=== PATIENT | female | born 1975 | race African-American/Black ===

== ENCOUNTER 2016-06-10 18:35 | Emergency (ER) | payer BC ==
--- NOTE | 2016-06-10 19:00 | EKG REPORT ---
SEVERITY:- OTHERWISE NORMAL ECG - SINUS TACHYCARDIA : Confirmed by: Mike Pinedo 10-Jun-2016 18:59:36
--- NOTE | 2016-06-10 19:30 | ER Document Report ---
ED Medical Screen (RME) - General Chief Complaint: Pelvic Pain Stated Complaint: ABDOMINAL PAIN,NAUSEA,PALPITATIONS Time seen by provider: 19:26 Mode of Arrival: Ambulatory Information source: Patient Notes: 40-year-old female presents to ED for pelvic pain and chest pain since this morning. She is about 19 weeks 6 days . She's had heart palpitations before. States she can feel her heartbeat in her right ear. States she was last checked by her [employer] SOLUTION ARCHITECT 2 weeks ago. 3 para 2 I have greeted and performed a rapid initial assessment of this patient. A comprehensive ED assessment and evaluation of the patient, analysis of test results and completion of medical decision making process will be conducted by an additional ED providers. TRAVEL OUTSIDE OF THE [place] IN LAST 30 DAYS: No - Related Data Allergies/Adverse Reactions: No Known Allergies Allergy (Verified 11/24/13 18:20) Past Medical History Musculoskeltal Medical History: Reports Hx Muscle Spasm Past Surgical History: Reports: Hx Cholecystectomy - Immunizations Hx Diphtheria, Pertussis, Tetanus Vaccination: Yes
[2016-06-10 21:29] LABS: ABSOLUTE EOSINOPHILS # (AUTO) 0.1 10^3/uL (0.0-0.6); ABSOLUTE LYMPHOCYTES (AUTO) 1.8 10^3/uL (0.5-4.7); ABSOLUTE MONOCYTES (AUTO) 0.6 10^3/uL (0.1-1.4); ABSOLUTE NEUT (AUTO) 8.1 10^3/uL (1.7-8.2); BASOPHILS % (AUTO) 0.1 % (0-2); EOSINOPHILS % (AUTO) 0.9 % (0-6); HEMATOCRIT 34.1 % (36.0-47.0); HEMOGLOBIN 11.3 g/dL (12.0-15.5); HGB HCT DIFFERENCE -0.2; LYMPHOCYTES % (AUTO) 16.9 % (13-45); MEAN CORPUSCULAR HEMOGLOBIN 29.5 pg (27.0-33.4); MEAN CORPUSCULAR HGB CONC 33.2 g/dL (32.0-36.0); MEAN CORPUSCULAR VOLUME 89 fl (80-97); MONOCYTES % (AUTO) 5.3 % (3-13); RED BLOOD COUNT 3.84 10^6/uL (3.72-5.28); RED CELL DISTRIBUTION WIDTH 13.1 % (11.5-14.0); SEGMENTED NEUTROPHILS % (AUTO) 76.8 % (42-78); WHITE BLOOD COUNT 10.5 10^3/uL (4.0-10.5)
[2016-06-10 21:43] LABS: APPEARANCE,URINE CLEAR; BILIRUBIN,URINE NEGATIVE (NEGATIVE); GLUCOSE, URINE NEGATIVE (NEGATIVE); KETONES,URINE TRACE mg/dL (NEGATIVE); LEUKOCYTE ESTERASE,URINE NEGATIVE (NEGATIVE); NITRITE,URINE NEGATIVE (NEGATIVE); PROTEIN,URINE NEGATIVE (NEGATIVE); URINE SPECIFIC GRAVITY 1.013; UROBILINOGEN,URINE NEGATIVE mg/dL (<2.0)
[2016-06-10 21:53] LABS: ALANINE AMINOTRANSFERASE 58 U/L (9-52); ALBUMIN 3.8 g/dL (3.5-5.0); ALKALINE PHOSPHATASE 107 U/L (38-126); ANION GAP 8 (5-19); ASPARTATE AMINO TRANSFERASE 35 U/L (14-36); BILIRUBIN,TOTAL 0.4 mg/dL (0.2-1.3); BLOOD UREA NITROGEN 6 mg/dL (7-20); CALCIUM 9.6 mg/dL (8.4-10.2); CARBON DIOXIDE 25 mmol/L (22-30); CHLORIDE 104 mmol/L (98-107); CREATINE KINASE 100 U/L (30-135); CREATININE RESULT 0.62 mg/dL (0.52-1.25); GLUCOSE 84 mg/dL (75-110); POTASSIUM 4.1 mmol/L (3.6-5.0); SODIUM 137.3 mmol/L (137-145); TOTAL PROTEIN 6.7 g/dL (6.3-8.2)
--- NOTE | 2016-06-11 02:18 | ER Document Report ---
ED General - General Chief Complaint: Pelvic Pain Stated Complaint: ABDOMINAL PAIN,NAUSEA,PALPITATIONS Mode of Arrival: Ambulatory Notes: Patient is a 40-year-old female presents with complaint of some lower pelvic cramping. She's also had some palpitations. She says she's tissues could be from stress to symptoms she does become anxious and feels her heart racing. She symptoms will for her heartbeat in her ear. She says she hears her heartbeat in her ear mainly when she lays flat. She has had some nasal congestion and cough recently. No fevers. Some nausea. No diarrhea. She is currently 19 weeks . This is her fourth . She's had 2 live children. One elective . TRAVEL OUTSIDE OF THE [place] IN LAST 30 DAYS: No - Related Data Allergies/Adverse Reactions: No Known Allergies Allergy (Verified 11/24/13 18:20) Past Medical History - General Information source: Patient - Social History Smoking Status: Former Smoker Frequency of alcohol use: None Drug Abuse: None Family History: Reviewed & Not Pertinent Patient has suicidal ideation: No Patient has homicidal ideation: No Renal/ Medical History: Denies: Hx Peritoneal Dialysis Musculoskeltal Medical History: Reports Hx Muscle Spasm Past Surgical History: Reports: Hx Cholecystectomy - Immunizations Hx Diphtheria, Pertussis, Tetanus Vaccination: Yes Review of Systems - Review of Systems Notes: My Normal Review Basic REVIEW OF SYSTEMS: CONSTITUTIONAL : Denies fever, chills, or sweats. Denies recent illness. EENT: Denies eye, ear, throat, or mouth pain or symptoms. Denies nasal or sinus congestion. CARDIOVASCULAR: Denies chest pain. Some palpitations RESPIRATORY: Denies cough, cold, or chest congestion. Denies shortness of breath, difficulty breathing, or wheezing. GASTROINTESTINAL: Mild lower abdominal pain and cramping. Denies nausea, vomiting, or diarrhea. Denies constipation. Last BM: GENITOURINARY: Denies difficulty urinating, painful urination, burning, frequency, or blood in urine. Pelvic: No abnormal vaginal discharge or no bleeding. Currently . MUSCULOSKELETAL: Denies neck or back pain or joint pain or swelling. SKIN: Denies rash or skin lesions. NEUROLOGICAL: Denies altered mental status or loss of consciousness. Denies headache. Denies weakness or paralysis or loss of use of either side. Denies problems with gait or speech. Denies sensory or motor loss. ALL OTHER SYSTEMS REVIEWED AND NEGATIVE. Physical Exam - Vital signs Vitals: Temp Pulse Resp BP Pulse Ox 97.9 F 100 16 137/84 H 100 06/10/16 18:59 06/10/16 18:59 06/10/16 18:59 06/10/16 18:59 06/10/16 18:59 - Notes Notes: General Appearance: Well nourished, alert, cooperative, no acute distress, no obvious discomfort. Well-appearing Vitals: reviewed, See vital signs table. Head: no swelling or tenderness to the head Eyes: PERRL, EOMI, Conjuctiva clear Mouth: No decreasd moisture Neck: Supple, no neck tenderness, No thyromegaly Lungs: No wheezing, No rales, No rhonci, No accessory muscle use, good air exchange bilaterally. Heart: Normal rate, Regular rythm, No murmur, no rub Abdomen: Normal BS, soft, No rigidity, mild suprapubic abdominal tenderness to palpation, No guarding, no rebound, no abdominal masses, no organomegaly Pelvic: Normal external genitalia. Why she discharge in vaginal vault. No blood. No pain during exam. Extremities: strength 5/5 in all extremities, good pulses in all extremities, no swelling or tenderness in the extremities, no edema. Skin: warm, dry, appropriate color, no rash Neuro: speech clear, oriented x 3, normal affect, responds appropriately to questions. Course - Vital Signs Vital signs: Temp Pulse Resp BP Pulse Ox 97.9 F 80 16 130/80 H 100 06/11/16 03:29 06/11/16 03:29 06/11/16 03:29 06/11/16 03:29 06/11/16 03:29 - Laboratory Result Diagrams: 06/10/16 21:00 06/10/16 21:00 Laboratory results interpreted by me: 06/10/16 06/10/16 06/10/16 21:00 21:00 21:00 Hgb 11.3 L Hct 34.1 L BUN 6 L ALT 58 H Beta HCG, Quant 5080.70 H Urine Ketones TRACE H Urine Ascorbic Acid 40 H - Transfer of Care Notes: 06/11/16 05:49 Patient will be discharged home. Her pelvic exam shows evidence of bacterial vaginosis. She'll be placed on Flagyl. His no blood in vaginal vault. Ultrasound is normal. She has no concerning findings on cardiac exam patient has no murmurs. Her heart rate is normal. I feel she is safe to be discharged home. Encourage her to follow closely with her OB doctor. She has no signs of pulmonary embolus. She has no tachycardia. No chest pain. No shortness of breath. Dictation of this chart was performed using voice recognition software; therefore, there may be some unintended grammatical errors. Discharge - Discharge Clinical Impression: Pelvic pain, Palpitations, Bacterial vaginosis Condition: Good Disposition: HOME, SELF-CARE Additional Instructions: Please follow up with your OB physician in 2-3 days. Please return to the ER immediately if you have fevers, worsening pain, vaginal bleeding, difficulty breathing, chest pain, or feel unwell. Prescriptions: Metronidazole [Flagyl 500 mg Tablet] 500 mg PO BID #14 tablet Forms: Return to Work Referrals: DILLON KOCH MD [Primary Care Provider] - 06/13/16
[2016-06-11] MEDS ORDERED: METRONIDAZOLE 500 MG TABLET PO ONE (03:26)
[2016-06-11 03:45] VITALS: BP 130/80
[2016-06-11 03:50] LABS: CHLAM PCR NOT DETECTED (NOT DETECT)
== END 2016-06-11 03:46 | disposition home or self-care (01) ==
LOC: ER 18:35
DX: O23.592 Infection of other part of genital tract in pregnancy, second trimester (principal); B96.89 Other specified bacterial agents as the cause of diseases classified elsewhere; O26.92 Pregnancy related conditions, unspecified, second trimester; R00.2 Palpitations; R10.2 Pelvic and perineal pain; R09.81 Nasal congestion; R11.0 Nausea; Z3A.19 19 weeks gestation of pregnancy; Z87.891 Personal history of nicotine dependence
CPT/HCPCS: 36415; 76805; 80053; 81001; 82550; 82553; 84702; 85025; 87210; 87491; 87591; 93005; 93010; 99285

== ENCOUNTER 2016-08-14 16:24 | Outpatient (CLI) | payer BC, MEDICAID ==
[2016-08-14 17:29] LABS: APPEARANCE,URINE SLIGHTLY-CLOUDY; BILIRUBIN,URINE NEGATIVE (NEGATIVE); GLUCOSE, URINE NEGATIVE (NEGATIVE); KETONES,URINE NEGATIVE (NEGATIVE); LEUKOCYTE ESTERASE,URINE NEGATIVE (NEGATIVE); NITRITE,URINE NEGATIVE (NEGATIVE); PROTEIN,URINE NEGATIVE (NEGATIVE); URINE SPECIFIC GRAVITY 1.012; UROBILINOGEN,URINE NEGATIVE mg/dL (<2.0)
[2016-08-14 17:44] LABS: URINE BARBITURATES SCREEN NEGATIVE; URINE METHADONE SCREEN NEGATIVE; URINE OPIATES LOW NEGATIVE; URINE PHENCYCLIDINE SCREEN NEGATIVE
[2016-08-14] MEDS ORDERED: HYDROXYZINE PAMOATE 50 MG CAPSULE PO ONE (17:49)
[2016-08-14] MEDS ORDERED: HYDROXYZINE PAMOATE 50 MG CAPSULE ONE (18:02)
[2016-08-14] MEDS ORDERED: ACETAMINOPHEN 325 MG TABLET ONE (18:02)
[2016-08-14] MEDS ORDERED: ACETAMINOPHEN 325 MG TABLET PO ONE (18:15)
--- NOTE | 2016-08-14 20:03 | L&D Flow Sheet ---
LD Flowsheet Datetime Report Generated by CPN: 08/14/2016 20:00 Datetime: 08/14/2016 18:00 Communication Comments: Dr Molina at bedside for assessment reveiwed common complaints and interventions. Reviewed Vistaril prescription and educated to increase po intake verbalized understanding denies questions or concerns (May Camp, RNC) Datetime: 08/14/2016 17:35 Communication Communication: RN at Bedside; Provider at Bedside (May Camp, RNC) Datetime: 08/14/2016 17:13 Vital Signs NBP Sys/Zo/Mean (mmHg): 112 (QS system process) : 64 (QS system process) : 83 (QS system process) Pulse: 94 (QS system process) Comments: strip appropriate for gestational age, continuous tracing discontinued per MD order , toco to continue (May Camp, RNC) Datetime: 08/14/2016 17:04 Uterine Activity Monitor Mode: External; Palpation (May Camp, RNC) Frequency (min): none (May Camp, RNC) Resting Tone (Palpate): Relaxed (May Camp, RNC) Assessment A Monitor Mode: External US; Auscultation (May Camp, RNC) FHR Baseline Rate : 130 (May Camp, RNC) FHR Baseline Changes: No Baseline Change (May Camp, RNC) Variability: Moderate 6-25 bpm (May Camp, RNC) Accelerations: 15X15 (May Camp, RNC) Decelerations: None (May Camp, RNC) Datetime: 08/14/2016 16:54 Patient Care IV/Blood Work: IV Started; IV Bolus Started (May Camp, RNC) Patient Care Comments: 18 g jelco placed in left hand on second attempt, LR 1000 ml bag hung for bolus (May Camp, RNC) Datetime: 08/14/2016 16:45 Comments: efm explained and applied repositioned to left lateral (May Camp, RNC) Pain Pain Scale: 3 (May Camp, RNC) Pain Presence: Intermittent (May Camp, RNC) Pain Type: Sharp (May Camp, RNC) Pain Location: Right Leg (May Camp, RNC) Pain Goal: 2 (May Camp, RNC) Pain Coping: Other (Annotations: no ) (May Camp, RNC) Vaginal Exam Vaginal Bleeding: None (May Camp, RNC) Maternal Assessment Level of Consciousness: Fully Conscious (May Camp, RNC) DTR's/Clonus: DTRs 2+; No Clonus (May Camp, RNC) Headache: Denies (JOHANNY Guerra) Breath Sounds, Left: Clear and Equal (JOHANNY Geurra) Breath Sounds, Right: Clear and Equal (JOHANNY Guerra) Nausea/Vomiting: Denies (JOHANNY uGerra) RUQ Epigastric Pain: Denies (JOHANNY Guerra) I/O Interventions: Ice Chips Given; Clear Liquids Given (JOHANNY Guerra) Teaching Instructional Method: Demo; Verbal; Patient Instructed (JOHANNY Guerra) Plan of Care: Plan of Care Discussed (JOHANNY Guerra) Unit Routine: Mullen to Room; Call Pack; Bed; Monitoring (JOHANNY Guerra)
== END 2016-08-14 18:19 | disposition home or self-care (01) ==
LOC: LC 16:24
PROVIDERS: ATTEND Obstetrics & Gynecology
PROC: 4A1HXCZ Monitoring of Products of Conception, Cardiac Rate, External Approach (ICD-10-PCS; principal; 2016-08-14)
DX: O99.89 Other specified diseases and conditions complicating pregnancy, childbirth and the puerperium (principal); M79.604 Pain in right leg; M54.30 Sciatica, unspecified side; Z3A.29 29 weeks gestation of pregnancy
CPT/HCPCS: 59025; 80307; 81001

== ENCOUNTER 2016-08-15 22:19 | Outpatient (CLI) | payer BC, MEDICAID ==
[2016-08-15 22:59] LABS: APPEARANCE,URINE CLOUDY; BILIRUBIN,URINE NEGATIVE (NEGATIVE); GLUCOSE, URINE 50 mg/dL (NEGATIVE); KETONES,URINE NEGATIVE (NEGATIVE); LEUKOCYTE ESTERASE,URINE NEGATIVE (NEGATIVE); NITRITE,URINE NEGATIVE (NEGATIVE); PROTEIN,URINE NEGATIVE (NEGATIVE); URINE SPECIFIC GRAVITY 1.026; UROBILINOGEN,URINE NEGATIVE mg/dL (<2.0)
[2016-08-15 23:11] LABS: URINE BARBITURATES SCREEN NEGATIVE; URINE METHADONE SCREEN NEGATIVE; URINE OPIATES LOW NEGATIVE; URINE PHENCYCLIDINE SCREEN NEGATIVE
[2016-08-16] MEDS ORDERED: OXYCODONE-ACETAMINOPHEN 5-325 MG TABLET PO ONE (01:20)
[2016-08-16] MEDS ORDERED: OXYCODONE-ACETAMINOPHEN 5-325 MG TABLET ONE (01:28)
--- NOTE | 2016-08-16 04:45 | L&D General Admission ---
General Admit Datetime Report Generated by CPN: 08/16/2016 04:45 INFORMATION Patient Age: 40 (08/14/2016 16:25:QS system process) EDC: 10/29/2016 00:00 (08/14/2016 16:43:JOHANNY Guerra) : 4 (08/14/2016 16:43:JOHANNY Guerra) Para: 2 (08/14/2016 16:43:JOHANNY Guerra) Term: 2 (08/14/2016 16:43:JOHANNY Guerra) : 0 (08/14/2016 16:43:JOHANNY Guerra) Spontaneous Abortions: 0 (08/14/2016 16:43:JOHANNY Guerra) Induced Abortions: 1 (08/14/2016 16:43:JOHANNY Guerra) Livin (08/14/2016 16:43:JOHANNY Guerra) Cesareans: 0 (08/14/2016 16:43:JOHANNY Guerra) VBACs: 0 (08/14/2016 16:43:JOHANNY Guerra) Ectopic: 0 (08/14/2016 16:43:May Elmer, [facility]) [facility]: [facility] Baby, Number in Womb: 1 [facility]) 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[employer] [facility] (08/14/2016 16:43:May Colunga [facility]) Month of 1st Visit: february (08/14/2016 16:43:May Colunga [facility]) Adequate Care: Yes (08/14/2016 16:43:May Colunga [facility]) Prepregnancy Weight (lb): 280 (08/14/2016 16:43:May Colunga [facility]) Prepregnancy Weight (kg): 127.3 (08/14/2016 16:43:QS system process) Height (in): 61 (08/15/2016 22:38:QS system process) Height (in): 61 (08/14/2016 17:16:QS system process) ALLERGIES Medication Allergy: No (08/14/2016 16:43:May Camp, RNC) Medication Allergies: No Known Allergies (08/15/2016) (08/15/2016 22:36:QS system process) Medication Allergies: No Known Allergies (08/14/2016) (08/14/2016 17:16:QS system process) Medication Allergies: No Known Allergies (11/24/2013) (08/14/2016 16:25:QS system process) Latex Allergy: No Latex Allergies (08/14/2016 16:43:May Camp, RNC) COMMUNICATION Primary Language: [place] Citizen (08/14/2016 16:43:May Camp, RNC) Medical Tx Preferred Language: [place] Citizen (08/14/2016 16:43:May Camp, RNC) Communication Barrier(s): None (08/14/2016 16:43:May Camp, RNC) DEMOGRAPHICS Address: [facility] [address] [place] [address] (08/14/2016 16:25:QS system process) Zipcode: [address] (08/14/2016 16:25:QS system process) Home (08/14/2016 16:25:QS system process) SSN: [id number] (08/14/2016 16:25:QS system process) Next of Kin Name: BLANK CASTAÑEDA (08/14/2016 16:25:QS system process) Next of Kin (08/14/2016 16:25:QS system process) Next of Kin Relationship: MO (08/14/2016 16:25:QS system process) Date of : 1975 (08/14/2016 16:25:QS system process) Marital Status: (08/14/2016 16:25:QS system process) Sex: Female (08/14/2016 16:25:QS system process) Race: (08/14/2016 16:25:QS system process) Ethnicity: Non- or (08/14/2016 16:25:QS system process) Latter Day: Other (08/14/2016 16:25:QS system process) DRUG AND ALCOHOL USE Alcohol: No (08/14/2016 16:43:May Camp, RNC) Cigarettes: Former Smoker. [id number] (08/14/2016 16:43:May Camp, RNC) Marijuana: No (08/14/2016 16:43:May Camp, RNC) Other Illicit Drugs: No (08/14/2016 16:43:May Camp, RNC) VACCINE HISTORY Influenza Vaccine: Yes (08/14/2016 16:43:May Colunga, [facility]) Influenza Date: 02/2016 (08/14/2016 16:43:May Elmer, [facility]) Pneumococcal Vaccine: No (08/14/2016 16:43:May Elmer, [facility]) Tetanus Vaccine: Uncertain (08/14/2016 16:43:May Elmer, [facility]) Tdap Vaccine: Uncertain (08/14/2016 16:43:May Colunga, [facility]) Hepatitis B Vaccine: Uncertain (08/14/2016 16:43:[facility], [facility]) Line Analyst: [facility] (08/14/2016 16:43:May Colunga [facility]) Feeding Preference: Both (08/14/2016 16:43:May Colunga, [facility]) Circumcision: Yes (08/14/2016 16:43:May Colunga [facility]) Classes Attended: Unknown (08/14/2016 16:43:May Colunga, [facility]) Tubal Ligation: No (08/14/2016 16:43:May Colunga, [facility]) Tubal Authorization Signed: N/A (08/14/2016 16:43:May Colunga [facility]) Consent: N/A (08/14/2016 16:43:JOHANNY Guerra) Consent Signed: N/A (08/14/2016 16:43:JOHANNY Guerra) Pain Management Plans: Epidural (08/14/2016 16:43:JOHANNY Guerra) Plans for Labor and Delivery: None (08/14/2016 16:43:JOHANNY Guerra) Support Person: Trey Chapa (08/14/2016 16:43:JOHANNY Guerra) Support Person Relationship: (08/14/2016 16:43:JOHANNY Guerra) Cultural/Spritual Practice: No (08/14/2016 16:43:JOHANNY Guerra) Spir/Cult Dietary Needs: N/A (08/14/2016 16:43:JOHANNY Guerra) LIVING SITUATION/DISCHARGE PLAN Living Arrangements: Mobile Home (08/14/2016 16:43:JOHANNY Guerra) Adequate Access to:: Electric; Heat; Refrigeration; Plumbing/Running water; Phone; Transportation (08/14/2016 16:43:JOHANNY Guerra) WIC Program: Yes (08/14/2016 16:43:JOHANNY Guerra) Discharge Exhibits Curator Person: Blank Castañeda (08/14/2016 16:43:JOHANNY Guerra) Person to Help after Discharge: Blank Castañeda (08/14/2016 16:43:JOHANNY Guerra) Currently Using Commun Resources: Yes (08/14/2016 16:43:JOHANNY Guerra) Specify Current Resource Used: wic/ medicaid (08/14/2016 16:43:JOHANNY Guerra) Outside Agency/Bet Taker: No (08/14/2016 16:43:JOHANNY Guerra) Car Seat for Discharge: Yes (08/14/2016 16:43:JOHANNY Guerra) Pt Contact w/ Post : N/A (08/14/2016 16:43:JOHANNY Guerra) OB/PREVIOUS HISTORY History of Uterine Anomaly/TOM: Yes (08/14/2016 16:43:JOHANNY Guerra)
--- NOTE | 2016-08-16 04:45 | L&D Current Admission ---
Current Admit Datetime Report Generated by CPN: 08/16/2016 04:45 ADMISSION INFORMATION Chief Complaint: Contractions (Annotations: Pt states had this pain mainly on right side of lower abdomen and goes down the front of her thigh. States it does feel like u/c's . States is having the pain about 5-6 times per hour. States was in L/D with IV yesterday. States had cervical length done in office yesterday that stated it was long.) (08/15/2016 22:49:Camila Moya RN) Chief Complaint: Other (Annotations: shooting pain that radiates down thigh) (08/14/2016 16:45:JOHANNY Guerra)
--- NOTE | 2016-08-16 04:45 | L&D Admission Assessment ---
LD ADM ASMT Datetime Report Generated by CPN: 08/16/2016 04:45 PATIENT ASSESSMENT Assessment Type: Triage (08/15/2016 22:49:Camila Nita, RN) Assessment Type: Triage (08/14/2016 16:45:May Camp, RNC) WEIGHT Weight (lb): 290 (08/15/2016 22:38:QS system process) Weight (lb): 295 (08/14/2016 17:16:QS system process) Weight (kg): 131.8 (08/15/2016 22:38:QS system process) Weight (kg): 134.1 (08/14/2016 17:16:QS system process) Total Wt Gain (lb): 10 (08/15/2016 22:38:QS system process) Total Wt Gain (lb): 15 (08/14/2016 17:16:QS system process) Wt Gain (kg): 4.7 (08/15/2016 22:38:QS system process) Wt Gain (kg): 6.7 (08/14/2016 17:16:QS system process) BMI: 54.8 (08/15/2016 22:38:QS system process) PAIN Pain Scale: 4 (08/15/2016 22:49:Camila Moya RN) Pain Scale: 3 (08/14/2016 16:45:JOHANNY Guerra) Pain Presence: Intermittent (08/15/2016 22:49:Camila Moya RN) Pain Presence: Intermittent (08/14/2016 16:45:JOHANNY Guerra) Pain Type: Cramping; Sharp (08/15/2016 22:49:Camila Moya RN) Pain Type: Sharp (08/14/2016 16:45:JOHANNY Guerra) Pain Location: Abdomen; Right Hip; Right Leg (08/15/2016 22:49:Camila Moya RN) Pain Location: Right Leg (08/14/2016 16:45:JOHANNY Guerra) Pain Goal: 2 (08/14/2016 16:45:JOHANNY Guerra) Pain Related to Contraction: Unsure (08/15/2016 22:49:Camila Moya RN) Pain Related to Contraction: Unsure (08/14/2016 16:45:May Camp, RNC) CONTRACTIONS Frequency (min): none (08/14/2016 17:04:May Camp, RNC) Resting Tone [place]: Relaxed (08/14/2016 17:04:May Camp, RNC) NEURO Level of Consciousness: Fully Conscious (08/15/2016 22:49:Camila Moya RN) Level of Consciousness: Fully Conscious (08/14/2016 16:45:JOHANNY Guerra) DTR's/Clonus: DTRs 1+ (08/15/2016 22:49:Camila Moya RN) DTR's/Clonus: DTRs 2+; No Clonus (08/14/2016 16:45:JOHANNY Guerra) Headache: Denies (08/15/2016 22:49:Camila Moya RN) Headache: Denies (08/14/2016 16:45:JOHANNY Guerra) Dizziness: No (08/14/2016 16:45:May Camp, RNC) Blurred Vision: No (08/14/2016 16:45:May Camp, RNC) Extremity Numbness/Tingling : None (08/14/2016 16:45:May Camp, RNC) Extremity Movement: Full Range of Motion (08/14/2016 16:45:May Camp, RNC) CARDIOVASCULAR Nailbeds: [place] (08/14/2016 16:45:May Camp, RNC) Capillary Refill: Less than 3 Seconds (08/14/2016 16:45:May Camp, RNC) Facial Edema: None (08/14/2016 16:45:May Camp, RNC) Berry's Sign Left Leg: Negative (08/14/2016 16:45:May Camp, RNC) Berry's Sign Right Leg: Negative (08/14/2016 16:45:May Camp, RNC) RESPIRATORY Respiratory Effort: Unlabored; Regular Rhythm; Equal Expansion (08/14/2016 16:45:May Camp, RNC) Breath Sounds, Left: Clear and Equal (08/14/2016 16:45:May Camp, RNC) Breath Sounds, Right: Clear and Equal (08/14/2016 16:45:May Camp, RNC) Cough Productivity: None (08/14/2016 16:45:May Camp, RNC) GASTROINTESTINAL Nausea/Vomiting: Denies (08/14/2016 16:45:May Camp, RNC) Bowel Sounds: Normoactive; All Quadrants (08/14/2016 16:45:May Camp, RNC) RUQ Epigastric Pain: Denies (08/14/2016 16:45:May Camp, RNC) GENITOURINARY Bladder: Nondistended (08/14/2016 16:45:May Camp, RNC) Frequency of Urination: No (08/14/2016 16:45:May Camp, RNC) Urination Burning: No (08/14/2016 16:45:May Camp, RNC) CVA Tenderness: No (08/14/2016 16:45:May Camp, RNC) Vaginal Bleeding: None (08/14/2016 16:45:May Camp, RNC) Vaginal Discharge Color: N/A (08/14/2016 16:45:[facility]) INTEGUMENTARY Skin Color: Normal for Race (08/14/2016 16:45:[facility]) Skin Temperature: Warm (08/14/2016 16:45:[facility]) Skin Moisture: Dry (08/14/2016 16:45:[facility]) MELITON SKIN ASSESSMENT [place] Scale Sensory Perception: No Impairment- Responds to verbal commands. Has no sensory deficit which would limit ability to feel or voice pain or discomfort (08/14/2016 16:45:May Colunga [facility]) Meliton Scale Moisture: Rarely Moist- Skin is usually dry. Linen only requires changing at routine intervals (08/14/2016 16:45:May Colunga [facility]) Meliton Scale Activity: Walks Frequently- Walks outside the room at least twice a day and inside room at least every 2 hours during the day. (08/14/2016 16:45:May Colunga [facility]) Meliton Scale Mobility: No Limitations- Makes major and frequent changes in position without assistance (08/14/2016 16:45:JOHANNY Guerra) Meliton Scale Nutrition: Excellent- Eats most of every meal. Never refuses a meal. Usually eats a total of 4 or more servings of meat and dairy products. Occasionally eats between meals. Does not require supplementation (08/14/2016 16:45:JOHANNY Guerra) Meliton Scale Friction and Shear: No Apparent Problem- Moves in bed and in chair independently and has sufficient muscle strength to lift up completely during move. Maintains good position in bed or chair at all times (08/14/2016 16:45:JOHANNY Guerra) Meliton Scale Total: 23 (08/14/2016 16:45:QS system process) Meliton Scale Risk: No Risk of Pressure Ulcer Noted at this Time (08/14/2016 16:45:QS system process) SAFETY Call Pack Within Reach: Yes (08/14/2016 16:45:JOHANNY Guerra) Side Rails Up: Yes (08/14/2016 16:45:JOHANNY Guerra) Bed Wheels Locked: Yes (08/14/2016 16:45:JOHANNY Guerra) Arm Bands Present: Yes (08/14/2016 16:45:JOHANNY Guerra) BABY A FHR Baseline Rate (bpm) Baby A: 130 (08/14/2016 17:04:JOHANNY Guerra) Variability Baby A: Moderate 6-25 bpm (08/14/2016 17:04:JOHANNY Guerra) Accelerations Baby A: 15X15 (08/14/2016 17:04:JOHANNY Guerra) Decelerations Baby A: None (08/14/2016 17:04:JOHANNY Guerra)
--- NOTE | 2016-08-16 04:45 | Antepartum Discharge Summary ---
Antepartum DC Datetime Report Generated by CPN: 08/16/2016 04:45 DIET/ACTIVITY/RESTRICTIONS Diet: Regular (08/16/2016 01:52:Camila Moya RN) Diet: Regular (08/14/2016 19:20:May Camp, RNC) Activity: Normal Activity (08/16/2016 01:52:Camila Moya RN) Activity: Normal Activity (08/14/2016 19:20:May Camp, RNC) Activity Restrictions: No Lifting (08/14/2016 19:20:May Camp, RNC) TEACHING/INSTRUCTIONS/REFERRALS Instructions Given To: Neftaly Chapa (08/16/2016 01:52:Camila Moya RN) Instructions Given To: patient and daughter (08/14/2016 19:20:JOHANNY Guerra) Instructions Understood: Patient Verbalized Understanding (08/16/2016 01:52:Camila Moya RN) Instructions Understood: Patient Verbalized Understanding; Support Person Verbalized Understanding (08/14/2016 19:20:JOHANNY Guerra) Referrals: None (08/16/2016 01:52:Camila Moya RN) Referrals: None (08/14/2016 19:20:JOHANNY Guerra) Educational Materials- Other: Care notes on dehydration (08/16/2016 01:52:Camila Moya RN) Educational Materials- Other: care notes reviewed and signed for sciatic pain and comfort measures (08/14/2016 19:20:JOHANNY Guerra) DISCHARGE INFORMATION Discharged AMA: No (08/16/2016 01:52:Camila Moya RN) Discharged AMA: No (08/14/2016 19:20:JOHANNY Guerra) Discharge Date/Time: 08/16/2016 01:38 (08/16/2016 01:52:Camila Moya RN) Discharge Date/Time: 08/14/2016 18:19 (08/14/2016 19:20:JOHANNY Guerra) Discharged To: Home (08/16/2016 01:52:Camila Moya RN) Discharged To: Home (08/14/2016 19:20:JOHANNY Guerra) Discharge Provider Name: Dr. Brown (08/16/2016 01:52:Camila Moya RN) Discharge Provider Name: Shayne Augutse (08/14/2016 19:20:JOHANNY Guerra) Accompanied By: daughter (08/16/2016 01:52:Camila Moya RN) Accompanied By: daughter (08/14/2016 19:20:JOHNANY Guerra) Discharge Method: Wheelchair (08/16/2016 01:52:Camila Moya RN) Discharge Method: Ambulatory (08/14/2016 19:20:JOHANNY Guerra) Condition: Stable (08/14/2016 19:20:JOHANNY Guerra) FOLLOW UP INFORMATION Follow Up With: [facility] (08/16/2016 01:52:Camila Moya RN) Follow Up With: [facility] (08/14/2016 19:20:JOHANNY Guerra) Follow Up On: As Scheduled (08/16/2016 01:52:Camila Moya RN) Follow Up On: As Scheduled (08/14/2016 19:20:JOHANNY Guerra) Follow Up Phone Number: [facility] - (08/16/2016 01:52:Camila Moya RN) Follow Up Phone Number: [facility] - (08/14/2016 19:20:JOHANNY Guerra) Comments: Pt given 2 Percocet for pain. (08/16/2016 01:52:Camila Moya RN) Comments: prescription for Vistaril (08/14/2016 19:20:JOHANNY Guerra)
--- NOTE | 2016-08-16 04:45 | L&D Discharge Summary ---
OB Discharge Summary Datetime Report Generated by CPN: 08/16/2016 04:45 DISCHARGE DIAGNOSIS Diagnosis/Symptoms: False Labor; Other Diagnoses/Symptoms Other: False labor, dehydration and sciatic pain. Treatment/Procedures Other: cervical length Gestation: 29.2 Number of Babies in Womb: 1 Parity: 2 DIET/ACTIVITY/RESTRICTIONS Diet: Regular Activity: Normal Activity Activity Restrictions: No Lifting TEACHING/INSTRUCTIONS/REFERRALS Instructions Given To: Cathedria Eduard Instructions Understood: Patient Verbalized Understanding Referrals: None Educational Materials- Other: Care notes on dehydration DISCHARGE INFORMATION Discharged AMA: No Discharge Date/Time: 08/16/2016 01:38 Discharged To: Home Discharge Provider Name: Dr. Brown Accompanied By: daughter Discharge Method: Wheelchair Condition: Stable FOLLOW UP INFORMATION Follow Up With: [facility] Follow Up On: As Scheduled Follow Up Phone Number: [facility] - Comments: Pt given 2 Percocet for pain.
--- NOTE | 2016-08-16 04:45 | L&D Flow Sheet ---
LD Flowsheet Datetime Report Generated by CPN: 08/16/2016 04:45 Datetime: 08/16/2016 01:38 Additional Nursing Comments: Pt d/c'd to home via w/c with daughter at side. (Camila Moya, GIANCARLO) Datetime: 08/16/2016 01:30 Analgesics/Sedatives: percocet 2 tabs po. (Camila Moya RN) Instructional Method: Demo; Verbal (Annotations: Care notes given on dehydration and discussed in length with patient importance of proper hydration. Urine specific gravity 10.26) (Camila Moya, RN) Datetime: 08/16/2016 01:20 Communication Comments: Cervical length of 3.[address] Brown. Orders received for d/c and pain med. (Camila Moya, RN) Datetime: 08/16/2016 00:19 Maternal Comments: U/S report frpm office pulled from A records. Pt did not have cervical length done, just anatomy scan. (Camila Moya, RN) Datetime: 08/16/2016 00:04 Patient Care Comments: Pt to Radiology for cervical length (Camila Nita, RN) Datetime: 08/15/2016 23:49 NBP Sys/Zo/Mean (mmHg): 125 (QS system process) : 85 (QS system process) : 101 (QS system process) Pulse: 90 (QS system process) Datetime: 08/15/2016 23:19 NBP Sys/Zo/Mean (mmHg): 133 (QS system process) : 78 (QS system process) : 95 (QS system process) Pulse: 95 (QS system process) Datetime: 08/15/2016 23:07 Communication Comments: Pt notified of POC and explained that several emergencies occuring in L/D. Will get cervical length polly. (Camila Moya RN) Datetime: 08/15/2016 23:00 Communication Comments: Dr. Brown informed of pt's c/o and that she was here in L/D yesterday. Orders received for repeated cervical length (Camila RodriguezGIANCARLO thacker) Datetime: 08/15/2016 22:49 NBP Sys/Zo/Mean (mmHg): 130 (QS system process) : 73 (QS system process) : 94 (QS system process) Pulse: 102 (QS system process) Pain Scale: 4 (Camila Moya RN) Pain Presence: Intermittent (Camila Moya RN) Pain Type: Cramping; Sharp (Camila Moya RN) Pain Location: Abdomen; Right Hip; Right Leg (Camila Moya RN) Pain Coping: Breathing Through Contractions (Camila Moya RN) Level of Consciousness: Fully Conscious (Camila Moya RN) DTR's/Clonus: DTRs 1+ (Camila Moya RN) Headache: Denies (Camila Moya RN)
== END 2016-08-16 01:32 | disposition home or self-care (01) ==
LOC: EDSTATUS 22:22 → LC 22:23
PROVIDERS: ATTEND Obstetrics & Gynecology
PROC: 4A1HXCZ Monitoring of Products of Conception, Cardiac Rate, External Approach (ICD-10-PCS; principal; 2016-08-15)
DX: O47.03 False labor before 37 completed weeks of gestation, third trimester (principal); O99.283 Endocrine, nutritional and metabolic diseases complicating pregnancy, third trimester; E86.0 Dehydration; O09.523 Supervision of elderly multigravida, third trimester; O99.89 Other specified diseases and conditions complicating pregnancy, childbirth and the puerperium; M54.30 Sciatica, unspecified side; Z3A.29 29 weeks gestation of pregnancy
CPT/HCPCS: 76815; 80307; 81001

== ENCOUNTER 2016-10-11 10:39 | Outpatient (CLI) | payer BC, MEDICAID ==
[2016-10-11 11:31] LABS: AMNISURE (ROM) NEGATIVE (NEGATIVE)
--- NOTE | 2016-10-11 11:36 | Non Stress Test Report ---
Non Stress Test Datetime Report Generated by CPN: 10/11/2016 11:36 DEMOGRAPHIC EGA NST: 37.3 INDICATION Indication for Study: Ordered by Provider Indication for Study (NST) Other: Repeat MONITORING Monitor Explained: Monitor Explained; Test Explained; Patient Verbalized Understanding Time on Monitor: 10/11/2016 11:09 Time off Monitor: 10/11/2016 11:34 NST Duration: 25 NST INTERVENTIONS NST Interventions: PO Hydration Physician Notified NST: Dr. Brown BABY A: [id number] BABY A Movement : Present Movement : Present Contraction Frequency : none FHR Baseline : 135 Accelerations : 15X15 Decelerations : None Variability : Moderate 6-25bpm NST Review: Meets Criteria for Reactive NST NST Review: Meets Criteria for Reactive NST NST Review and Verified By : Shayne Moody [facility] NST Results: Reactive NST REPORT Report Trigger: Send Report
[2016-10-11 11:37] LABS: APPEARANCE,URINE CLOUDY; BILIRUBIN,URINE NEGATIVE (NEGATIVE); GLUCOSE, URINE NEGATIVE (NEGATIVE); KETONES,URINE NEGATIVE (NEGATIVE); LEUKOCYTE ESTERASE,URINE TRACE (NEGATIVE); NITRITE,URINE NEGATIVE (NEGATIVE); PROTEIN,URINE NEGATIVE (NEGATIVE); URINE SPECIFIC GRAVITY 1.015; UROBILINOGEN,URINE NEGATIVE mg/dL (<2.0)
[2016-10-11 12:15] LABS: URINE BARBITURATES SCREEN NEGATIVE; URINE METHADONE SCREEN NEGATIVE; URINE OPIATES LOW NEGATIVE; URINE PHENCYCLIDINE SCREEN NEGATIVE
== END 2016-10-11 11:49 | disposition home or self-care (01) ==
LOC: LC 10:39
PROVIDERS: ATTEND Obstetrics & Gynecology
PROC: 4A1HXCZ Monitoring of Products of Conception, Cardiac Rate, External Approach (ICD-10-PCS; principal; 2016-10-11)
DX: O47.1 False labor at or after 37 completed weeks of gestation (principal); O09.523 Supervision of elderly multigravida, third trimester; Z3A.37 37 weeks gestation of pregnancy
CPT/HCPCS: 59025; 80307; 81001; 84112

== ENCOUNTER 2016-10-16 16:33 | Outpatient (CLI) | payer BC, MEDICAID ==
[2016-10-16] MEDS ORDERED: RINGERS SOLUTION,LACTATED 300 ML IV ONE (16:52)
--- NOTE | 2016-10-16 17:18 | Non Stress Test Report ---
Non Stress Test Datetime Report Generated by CPN: 10/16/2016 17:18 DEMOGRAPHIC EGA NST: 38.1 INDICATION Indication for Study: Ordered by Provider MONITORING Monitor Explained: Monitor Explained; Test Explained; Patient Verbalized Understanding Time on Monitor: 10/16/2016 16:45 Time off Monitor: 10/16/2016 17:13 NST Duration: 28 NST INTERVENTIONS NST Interventions: IV Fluids Physician Notified NST: Dr. Brown BABY A: [id number] BABY A Movement : Present Contraction Frequency : none FHR Baseline : 130 Accelerations : 15X15 Decelerations : None Variability : Moderate 6-25bpm NST Review: Meets Criteria for Reactive NST NST Review and Verified By : Shayne Bellavance [facility] NST Results: Reactive NST REPORT Report Trigger: Send Report
[2016-10-16 17:36] LABS: APPEARANCE,URINE SLIGHTLY-CLOUDY; BILIRUBIN,URINE NEGATIVE (NEGATIVE); GLUCOSE, URINE NEGATIVE (NEGATIVE); KETONES,URINE NEGATIVE (NEGATIVE); LEUKOCYTE ESTERASE,URINE NEGATIVE (NEGATIVE); NITRITE,URINE NEGATIVE (NEGATIVE); PROTEIN,URINE 30 mg/dL (NEGATIVE); URINE SPECIFIC GRAVITY 1.027; UROBILINOGEN,URINE NEGATIVE mg/dL (<2.0)
[2016-10-16 17:53] LABS: URINE BARBITURATES SCREEN NEGATIVE; URINE METHADONE SCREEN NEGATIVE; URINE OPIATES LOW NEGATIVE; URINE PHENCYCLIDINE SCREEN NEGATIVE
== END 2016-10-16 18:27 | disposition home or self-care (01) ==
LOC: LC 16:33
PROVIDERS: ATTEND Obstetrics & Gynecology
PROC: 4A1HXCZ Monitoring of Products of Conception, Cardiac Rate, External Approach (ICD-10-PCS; principal; 2016-10-16)
DX: O99.283 Endocrine, nutritional and metabolic diseases complicating pregnancy, third trimester (principal); E86.0 Dehydration; O09.523 Supervision of elderly multigravida, third trimester; Z3A.38 38 weeks gestation of pregnancy
CPT/HCPCS: 59025; 80307; 81005

== ENCOUNTER 2018-12-25 08:58 | Emergency (ER) | payer BC, MEDICAID ==
--- NOTE | 2018-12-25 10:11 | ER Document Report ---
ED Cardiac - General Chief Complaint: Palpitations Stated Complaint: FAST HEART RATE Time Seen by Provider: 12/25/18 09:26 Primary Care Provider: DENIS PACHECO MD [Primary Care Provider] - Follow up as needed TRAVEL OUTSIDE OF THE [place] IN LAST 30 DAYS: No - HPI Notes: Patient is a 43-year-old female who presents to the emergency department for evaluation. She was driving to work. She started feeling flushed all over. She felt very anxious. Her heart was beating rapidly. She pulled over and checked her blood pressure. It was normal but her heart rate was in the 130s. She got to work and continued to feel poorly, so she was advised to go to the emergency room. She took some Ativan when her symptoms began, normally her symptoms similar to this improved with Ativan. She states that they had not as of arriving at work. She does state, however, that now her symptoms have improved significantly. She denies any suicidal or homicidal ideation, no visual or auditory hallucination. On further questioning, patient states she had vaginal bleeding for about a month. 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 She saw her director of advertising sales, who told her that she was likely perimenopausal. - Related Data Allergies/Adverse Reactions: No Known Allergies Allergy (Verified 12/25/18 09:01) Home Medications: Amlodipine, Ativan Past Medical History - General Information source: Patient - Social History Smoking Status: Current Some Day Smoker Drug Abuse: None Family History: Reviewed & Not Pertinent, DM, Hypertension Patient has suicidal ideation: No Patient has homicidal ideation: No - Past Medical History Cardiac Medical History: Reports: Hx Hypertension Renal/ Medical History: Denies: Hx Peritoneal Dialysis Musculoskeletal Medical History: Reports Hx Muscle Spasm Psychiatric Medical History: Reports: Hx Anxiety Past Surgical History: Reports: Hx Cholecystectomy - Immunizations Hx Diphtheria, Pertussis, Tetanus Vaccination: Yes Review of Systems - Review of Systems Constitutional: No symptoms reported EENT: No symptoms reported Cardiovascular: See HPI Respiratory: No symptoms reported Gastrointestinal: No symptoms reported Genitourinary: No symptoms reported Female Genitourinary: See HPI Musculoskeletal: No symptoms reported Skin: No symptoms reported Neurological/Psychological: See HPI Physical Exam - Vital signs Vitals: BP 134/88 H 12/25/18 09:23 - Notes Notes: Vital signs reviewed, please refer to chart. Head is normocephalic, atraumatic. Pupils equal round, reactive to light. Neck is supple without meningismus. Heart is regular rate and rhythm. Lungs are clear to auscultation bilaterally. Abdomen is soft, nontender, normoactive bowel sounds throughout. Extremities without cyanosis, clubbing. Posterior calves are nontender. Peripheral pulses are equal. Skin is warm and dry. Patient is awake, alert, neurological exam is nonfocal. Course - Re-evaluation Re-evalutation: 12/25/18 10:10 Patient presents emergency department for evaluation. Initially upon arrival, patient was feeling palpitations, anxious. Prior to me seeing her, however, the Ativan that she had taken earlier started to take effect. She no longer felt anxious or palpitations. She has absolutely no risk factors for PE. She remained stable throughout the course of her stay. Laboratory investigations, including TSH at patient's request, revealed no significant abnormality. I do not have a clear etiology for this patient's symptoms. Certainly it could still be her anxiety, despite the atypical symptoms for her. This was explained to the patient. She actually has an appointment with her doctor later this month. She is encouraged strongly to keep it. She is to return to the emergency department with worsening new concerning symptoms of any sort. 12/25/18 12:20 12/25/18 12:21 - Vital Signs Vital signs: Temp Pulse Resp BP Pulse Ox 98.7 F 19 134/88 H 12/25/18 09:38 12/25/18 09:24 12/25/18 09:23 - Laboratory Result Diagrams: 12/25/18 09:23 12/25/18 09:23 Laboratory results interpreted by me: 12/25/18 09:23 Glucose 134 H - EKG Interpretation by Me Additional EKG results interpreted by me: 12/25/18 12:21 Sinus tachycardia with a rate of 114 bpm. Normal axis and intervals. No acute ST changes concerning for infarction. Nonspecific inferior changes noted. Discharge - Discharge Clinical Impression: Palpitations Condition: Stable Disposition: HOME, SELF-CARE Instructions: Palpitations (Irregular or Rapid Heartrate) ([facility]) Additional Instructions: No clear cause was found for your symptoms today. Your heart rate improved with rest, Ativan. Follow closely with you primary care physician as scheduled. If you develop worsening or new concerning symptoms of any sort, return immediately to the emergency department for evaluation. Referrals: DENIS PACHECO MD [Primary Care Provider] - Follow up as needed
[2018-12-25 10:28] LABS: ALBUMIN 4.4 g/dL (3.5-5.0); ALKALINE PHOSPHATASE 100 U/L (38-126); ANION GAP 11 (5-19); ASPARTATE AMINO TRANSFERASE 29 U/L (14-36); BILIRUBIN,DIRECT 0.3 mg/dL (0.0-0.4); BILIRUBIN,TOTAL 0.5 mg/dL (0.2-1.3); BLOOD UREA NITROGEN 12 mg/dL (7-20); CALCIUM 9.2 mg/dL (8.4-10.2); CARBON DIOXIDE 25 mmol/L (22-30); CHLORIDE 103 mmol/L (98-107); GLUCOSE 134 mg/dL (75-110); POTASSIUM 3.7 mmol/L (3.6-5.0); TOTAL PROTEIN 7.9 g/dL (6.3-8.2)
[2018-12-25 10:41] LABS: ABSOLUTE EOSINOPHILS # (AUTO) 0.2 10^3/uL (0.0-0.6); ABSOLUTE MONOCYTES (AUTO) 0.5 10^3/uL (0.1-1.4); ABSOLUTE NEUT (AUTO) 4.6 10^3/uL (1.7-8.2); BASOPHILS % (AUTO) 0.6 % (0-2); EOSINOPHILS % (AUTO) 2.7 % (0-6); HEMATOCRIT 41.9 % (36.0-47.0); HEMOGLOBIN 13.7 g/dL (12.0-15.5); LYMPHOCYTES % (AUTO) 26.8 % (13-45); MEAN CORPUSCULAR HEMOGLOBIN 28.3 pg (27.0-33.4); MEAN CORPUSCULAR HGB CONC 32.7 g/dL (32.0-36.0); MEAN CORPUSCULAR VOLUME 86 fl (80-97); MONOCYTES % (AUTO) 6.6 % (3-13); PLATELET COUNT 300 10^3/uL (150-450); RED BLOOD COUNT 4.85 10^6/uL (3.72-5.28); RED CELL DISTRIBUTION WIDTH 13.8 % (11.5-14.0); SEGMENTED NEUTROPHILS % (AUTO) 63.3 % (42-78); TOTAL CELLS COUNTED % (AUTO) 100 %; WHITE BLOOD COUNT 7.3 10^3/uL (4.0-10.5)
[2018-12-25 12:34] VITALS: BP 136/89
--- NOTE | 2018-12-25 13:12 | EKG REPORT ---
SEVERITY:- BORDERLINE ECG - SINUS TACHYCARDIA BORDERLINE T ABNORMALITIES, INFERIOR LEADS : Confirmed by: Kwame Caballero MD 25-Dec-2018 13:12:00
== END 2018-12-25 12:34 | disposition home or self-care (01) ==
LOC: ER 08:58
DX: R00.2 Palpitations (principal); F41.9 Anxiety disorder, unspecified; R00.0 Tachycardia, unspecified; N93.9 Abnormal uterine and vaginal bleeding, unspecified; F17.200 Nicotine dependence, unspecified, uncomplicated; I10 Essential (primary) hypertension; Z79.899 Other long term (current) drug therapy
CPT/HCPCS: 36415; 80053; 84443; 85025; 93005; 93010; 99285